=== PATIENT | female | born 1955 | race Caucasian/White ===

== ENCOUNTER 2022-03-27 08:55 | Outpatient (CLI) | payer MEDICARE, OTHER | END 2022-03-27 08:56 | disposition home or self-care (01) | LOC: LABBT 08:55 | PROVIDERS: ATTEND Orthopaedic Surgery | DX: Z01.818 Encounter for other preprocedural examination (principal); M17.12 Unilateral primary osteoarthritis, left knee | CPT/HCPCS: 71046; 87081; 93005; 93010 ==

== ENCOUNTER 2022-03-31 05:32 | Observation (INO) | payer MEDICARE, OTHER ==
[2022-03-27 11:07] LABS: Prothrombin Time 10.4 sec (9.5-12.1)
[2022-03-31] MEDS ORDERED: fentaNYL PF 100 MCG/2 ML SYRINGE ONE (06:23)
[2022-03-31] MEDS ORDERED: Midazolam HCl 2 mg/2 ml Vial ONE (06:23)
[2022-03-31] MEDS ORDERED: Bupivacaine PF 0.5% 30 ML VIAL ONE (06:25)
[2022-03-31] MEDS ORDERED: Vancomycin 1 GM/200 ML (FROZEN) BAG ONE (06:25)
[2022-03-31] MEDS ORDERED: Sodium Chloride 0.9% 100 ML ONE ×2 (06:25→06:54)
[2022-03-31] MEDS ORDERED: Tranexamic Acid 1,000 MG/10 ML VIAL ONE ×2 (06:25→09:40)
[2022-03-31] MEDS ORDERED: CEFAZOLIN 2 GM VIAL ONE (06:54)
[2022-03-31] MEDS ORDERED: Ondansetron PF 4 MG/2 ML Vial IVP PRN (07:20)
[2022-03-31] MEDS ORDERED: Zolpidem Tartrate 5 MG TAB PO PRN (07:20)
[2022-03-31] MEDS ORDERED: Promethazine HCl 25 MG/ML VIAL IM PRN (07:20)
[2022-03-31] MEDS ORDERED: HYDROcodone/Acetaminophen 10/325 mg Tablet PO PRN (07:20)
[2022-03-31] MEDS ORDERED: Acetaminophen 325 MG TAB PO PRN (07:20)
[2022-03-31] MEDS ORDERED: traMADol HCl 50 MG TAB PO PRN ×2 (07:20→07:38)
[2022-03-31] MEDS ORDERED: diphenhydrAMINE 25 MG CAP PO PRN (07:20)
[2022-03-31] MEDS ORDERED: methylPREDNISolone Acetate 40 mg/ml Vial ONE (07:25)
[2022-03-31] MEDS ORDERED: Lidocaine 1% (PF) 30 ML VIAL ONE (07:25)
[2022-03-31] MEDS ORDERED: Ondansetron PF 4 MG/2 ML Vial ONE (07:30)
[2022-03-31] MEDS ORDERED: PROPOFOL 200 MG/20 ML VIAL ONE (07:30)
[2022-03-31] MEDS ORDERED: Ketorolac Tromethamine 30 MG/ML VIAL ONE (07:30)
[2022-03-31] MEDS ORDERED: Dexamethasone 20 MG/5 ML VIAL ONE (07:30)
[2022-03-31] MEDS ORDERED: ePHEDrine 50 MG/ML VIAL ONE (07:30)
[2022-03-31] MEDS ORDERED: Tranexamic Acid 1,000 MG in Sodium Chloride 0.9% 100 ML IVPB SCH (07:30)
[2022-03-31] MEDS ORDERED: FENTANYL 50 MCG/ML 1 ML VIAL SLOW IVP PRN ×2 (07:33→07:39)
[2022-03-31 07:45] LABS: SARS-CoV-2 NAA Rapid Test Not Detected (NotDetected)
[2022-03-31] MEDS ORDERED: Ropivacaine 0.2% 550 ML 550 ML NERVE BLCK SCH (07:45)
[2022-03-31] MEDS ORDERED: FENTANYL 50 MCG/ML 1 ML VIAL ONE ×4 (09:24→10:30)
[2022-03-31] MEDS ORDERED: Promethazine HCl 25 MG/ML VIAL ONE (09:35)
[2022-03-31] MEDS: Sodium Chloride 0.9% 1,000 ML IV SCH ×3 (11:37→20:19)
[2022-03-31] MEDS: Aspirin 81 mg Enteric Coated Tablet PO SCH ×2 (11:37→20:13)
[2022-03-31] MEDS: Multivitamin W/ Minerals 1 TAB PO SCH (11:38)
[2022-03-31] MEDS: Senokot S 8.6-50 MG TAB PO SCH ×3 (11:38→20:14)
[2022-03-31] MEDS: Ferrous Gluconate 324 MG TAB PO SCH ×2 (11:38→20:14)
[2022-03-31] MEDS: HYDROcodone/Acetaminophen 10/325 mg Tablet PO PRN (11:52)
[2022-03-31] MEDS: Hydrochlorothiazide 25 MG TAB PO SCH (11:53)
[2022-03-31] MEDS: Losartan 25 MG TAB PO SCH ×2 (11:54→20:13)
[2022-03-31 12:00] VITALS: BMI 35.9
[2022-03-31] MEDS ORDERED: Ketorolac Tromethamine 30 MG/ML VIAL IVP SCH (14:00)
[2022-03-31] MEDS: CEFAZOLIN 2 GM in Sodium Chloride 0.9% 100 ML IVPB SCH (16:11)
[2022-03-31] MEDS: Ketorolac Tromethamine 30 MG/ML VIAL IVP SCH ×2 (16:12→20:21)
[2022-03-31] MEDS ORDERED: Vancomycin HCl 1.5 GM in Sodium Chloride 0.9% 250 ML 300 ML IVPB SCH (18:00)
[2022-04-01] MEDS: CEFAZOLIN 2 GM in Sodium Chloride 0.9% 100 ML IVPB SCH (00:06)
[2022-04-01] MEDS: Ketorolac Tromethamine 30 MG/ML VIAL IVP SCH ×2 (03:24→08:08)
[2022-04-01] MEDS: Sodium Chloride 0.9% 1,000 ML IV SCH ×2 (04:35→12:03)
[2022-04-01 04:40] VITALS: TEMP 98.6
[2022-04-01 05:36] LABS: Hemoglobin 10.8 g/dL (12.0-16.0); Mean Corpuscular HGB CONC 32.6 g/dL (32.0-36.0); Mean Corpuscular Hemoglobin 29.8 pg (27.0-31.0); Mean Corpuscular Volume 91.5 fl (78.0-98.0); Mean Platelet Volume 7.7 fL (7.4-10.4); Platelet Count 165 10x3/uL (130-400); RBC Distribution Width 12.4 % (11.5-14.5); Red Blood Cell (RBC) Count 3.64 mill/uL (4.20-5.40); White Blood Cell (WBC) Count 8.7 10x3/uL (4.8-10.8)
[2022-04-01] MEDS ORDERED: Levothyroxine Sodium 75 MCG TAB PO SCH (06:00)
[2022-04-01] MEDS ORDERED: Ropivacaine 0.5% HCl/PF (150 MG/30 ML VIAL) ONE (06:43)
[2022-04-01] MEDS: Hydrochlorothiazide 25 MG TAB PO SCH (08:09)
[2022-04-01] MEDS: Ferrous Gluconate 324 MG TAB PO SCH (08:09)
[2022-04-01] MEDS: Losartan 25 MG TAB PO SCH (08:10)
[2022-04-01] MEDS: Multivitamin W/ Minerals 1 TAB PO SCH (08:11)
[2022-04-01] MEDS: Senokot S 8.6-50 MG TAB PO SCH (08:11)
[2022-04-01] MEDS: Aspirin 81 mg Enteric Coated Tablet PO SCH (08:11)
[2022-04-01 12:34] VITALS: BP 157/89
[2022-04-01] MEDS: HYDROcodone/Acetaminophen 10/325 mg Tablet PO PRN (12:42)
== END 2022-04-01 13:05 | disposition home or self-care (01) ==
LOC: SDC 05:32 → SJJU 10:54
PROVIDERS: ADMIT Orthopaedic Surgery; ATTEND Orthopaedic Surgery
PROC: 3E0U33Z Introduction of Anti-inflammatory into Joints, Percutaneous Approach (ICD-10-PCS; principal; 2022-03-31)
PROC: 0SRD0J9 Replacement of Left Knee Joint with Synthetic Substitute, Cemented, Open Approach (ICD-10-PCS; 2022-03-31)
DX: M17.0 Bilateral primary osteoarthritis of knee (principal); M23.8X2 Other internal derangements of left knee; I10 Essential (primary) hypertension; Z79.890 Hormone replacement therapy; Z79.899 Other long term (current) drug therapy; Z91.013 Allergy to seafood; Z20.822 Contact with and (suspected) exposure to COVID-19; Z01.818 Encounter for other preprocedural examination; M17.12 Unilateral primary osteoarthritis, left knee
CPT/HCPCS: 20610; 20985; 27447; 71046; 85027; 85610; 86850; 86900; 86901; 87081; 93005; 97116; 97530 ×2; A4306; C1713; C1776; J3010; J3370; U0002; 36415; 93010; J1030; J1100; J1885; J2001; J2250; J2405; J2550; J2704; J2795; J3490; J7050; S0020